=== PATIENT | male | born 1980 | race Caucasian/White ===

== ENCOUNTER → 2024-06-14 12:52 | Outpatient (REF) | payer OTHER, SELFPAY | LOC: HWRCS 12:52 | PROVIDERS: ATTENDING PHYSICIAN Internal Medicine Cardiovascular Disease; FAMILY PHYSICIAN Family Medicine | DX: I30.0 Acute nonspecific idiopathic pericarditis (principal) | CPT/HCPCS: 93306 ==

== ENCOUNTER 2024-10-10 06:23 | Day surgery (SDC) | payer OTHER, SELFPAY | END 2024-10-10 14:15 | disposition home or self-care (01) | LOC: GI 06:23 | PROVIDERS: ATTENDING PHYSICIAN Specialist | DX: K29.70 Gastritis, unspecified, without bleeding (principal); K31.7 Polyp of stomach and duodenum; K31.89 Other diseases of stomach and duodenum; R07.89 Other chest pain | CPT/HCPCS: 43239; 88305; 88342 ==